=== PATIENT | male | born 1990 | race Caucasian/White ===

== ENCOUNTER 2021-01-18 01:42 | Inpatient (IN) | payer MEDICAID ==
[~2021-01-18] VITALS: Ht 182.9 cm; Wt 77.9 kg
[~2021-01-18 01:42] MED LIST: NO HOME MEDICATIONS
[2021-01-18 02:40] LABS: BASO % 0.4 % (0.0-2.0); EOS % 0.2 % (0-4.0); GRAN # 4.4 (1.4-6.5); GRAN % 80.5 % (42.2-75.2); HEMATOCRIT 39.7 % (42.0-52.0); HEMOGLOBIN 14.4 g/dl (13.5-18.0); LYMPH # 0.5 (1.2-3.4); LYMPH % 8.8 % (20.0-51.0); MEAN CELL VOLUME 91 fl (80.0-100.0); MEAN CORPUSCULAR HEMOGLOBIN 33 pg (27.0-31.0); MEAN CORPUSCULAR HGB CONC 36 g/dl (33.0-37.0); MEAN PLATELET VOLUME 9.9 fl (7.4-10.4); MONO # 0.5 (0.1-0.6); MONO % 9.7 % (1.7-9.3); PLATELET COUNT 189 K/mm3 (130-400); RED BLOOD COUNT 4.35 M/mm3 (4.20-5.60); REDCELL DISTRIBUTION WIDTH-CV 12.2 % (11.5-14.5)
[2021-01-18 02:51] LABS: ALANINE AMINOTRANSFERASE 48 U/L (4-49); ALBUMIN 4.6 gm/dL (3.5-5.0); ALKALINE PHOSPHATASE 77 U/L (50-136); ANION GAP 12 mmol/L (7-16); AST,SGOT 65 U/L (15-37); BILIRUBIN,TOTAL 5.1 mg/dL (0.0-1.0); BLOOD UREA NITROGEN 9 mg/dL (9-20); CALCIUM 9.4 mg/dL (8.4-10.2); CARBON DIOXIDE 25 mmol/L (22-30); CHLORIDE 91 mmol/L (98-107); CREATININE, serum 0.67 (0.66-1.25); GLUCOSE 174 mg/dL (74-106); POTASSIUM 3.3 mmol/L (3.4-5.0); SODIUM 127 mmol/L (137-145); TOTAL PROTEIN 7.3 gm/dL (6.4-8.2)
[2021-01-18 02:55] LABS: ALCOHOL(ethanol),MEDICAL < 10 mg/dL
[2021-01-18 03:35] LABS: COLLECTION METHOD CLEAN CATCH
[2021-01-18 03:40] LABS: PH 6 (5-8); SQUAMOUS EPITHELIAL 0-2 /hpf; URINE APPEARANCE Clear; URINE BACTERIA None Seen /hpf; URINE BILIRUBIN Negative (NEGATIVE); URINE BLOOD 1+ (NEGATIVE); URINE COLOR Yellow; URINE GLUCOSE Negative (NEGATIVE); URINE KETONE 1+ (NEGATIVE); URINE LEUKOCYTE ESTERASE Negative (NEGATIVE); URINE NITRATE Negative (NEGATIVE); URINE PROTEIN(semi-quant) 1+ (NEGATIVE); URINE RBC 0-2 /hpf; URINE UROBILINOGEN Negative (NEGATIVE)
[2021-01-18 03:50] LABS: TRICYCLIC ANTIDEPRESS URINE NEGATIVE
[2021-01-18 06:37] LABS: PROTHROMBIN TIME 10.6 SECONDS (9.7-12.8)
[2021-01-18 06:39] LABS: PARTIAL THROMBOPLASTIN TIME 26.3 SECONDS (26.0-37.0)
[2021-01-18 09:26] VITALS: BP 127/62; PULSE 84; TEMP 98.6
[2021-01-18 11:02] LABS: CALCIUM 9.9 mg/dL (8.4-10.2); CREATININE, serum 0.88 (0.66-1.25); POTASSIUM 3.8 mmol/L (3.4-5.0)
[2021-01-18 11:41] VITALS: BP 127/67; PULSE 80; TEMP 98.3
--- NOTE | 2021-01-18 15:40 | NUR ---
MAYANK met with the patient and his mother, Yomi ([id number]#[id number]), to discuss discharge plan. The patient lives in [place], but has been staying with his parents: Jayshree (ph#[phone]) in [place]. He reports independence with ADLs and does not have any DME. The patient's PCP is Dr. Marcellus Peters and he receives his medications from [facility]. He reports no difficulties obtaining his meds. The patient does not have a DPOA-HC, but his mother was interested in obtaining a DPOA-HC form for him. MAYANK provided. The patient states that he is not and does not have any adult children. His parents are his next of kin. The patient gave SW permission to discuss his alcohol use in front of his mother. SW addressed the patient's heavy alcohol use. The patient reports that he has a plan to continue AA meetings upon discharge. He states that they are familiar with [facility] as well, if needed. The patient's mother inquired about treatment options for alcohol that will be recommended for the patient. MAYANK informed her and the patient of the different treatment options of AA meetings, outpatient treatment, and inpatient treatment and how it is the patient's decision on treatment. The patient and her mother verbalized understanding. The patient's mother was interested in talking to someone from [facility] about their program. MAYANK contacted [facility] CSU. The disaster director reports that the patient or his mother can contact them and they would give them more information about their program. MAYANK met with the patient and his mother and updated them on this and provided them with their phone number. MAYANK also provided the patient with a list of additional local alcohol treatment options. The patient plans to return back to his parents house upon discharge. SW to follow as needed. *Discharge plan: home with parents*
[2021-01-18 16:53] VITALS: BP 121/75; PULSE 71; TEMP 99
--- NOTE | 2021-01-18 19:13 | NUR ---
PT ADMITTED TODAY FROM THE ED. NO S/S OF DISTRESS NOTED. V/S MONITORED AND HAS BEEN STABLE TODAY. CIWA SCORE 3 AT 6PM. REPORT GIVEN TO NIGHT RN, PT STATES HE WOULD LIKE SOMETHING TO SLEEP. CALL PLACED TO [facility] AND WILL PLACE ORDER FOR SLEEP AIDE AND ONE TIME DOSE OF TYLENOL.
[2021-01-18 20:08] VITALS: BP 125/68; PULSE 70; TEMP 98.8
[2021-01-18 22:30] VITALS: BP 129/73; PULSE 62; TEMP 99
[2021-01-18 23:48] VITALS: BP 95/65; PULSE 68; TEMP 98.3
[2021-01-19 02:00] VITALS: BP 124/75; PULSE 57; TEMP 98.2
--- NOTE | 2021-01-19 02:25 | NUR ---
Patient states he accidentally pulled his IV. Arabella EDWARDS inserted a new IV on his right forearm G22. Asked patient if he was able to sleep at some point and he said the last time he slept was afternoon and it was 1 hour only and he haven't sleep yet after that.
[2021-01-19 03:57] VITALS: BP 110/67; PULSE 62; TEMP 98
--- NOTE | 2021-01-19 06:05 | NUR ---
Patient states he still wasn't able to sleep even if Melatonin was given last night. His CIWA scores 3. Ativan never given during the whole shift.
[2021-01-19 06:14] VITALS: BP 118/68; PULSE 58; TEMP 97.9
[2021-01-19 06:55] LABS: BASO % 0.7 % (0.0-2.0); EOS # 0.1 (0.0-0.7); EOS % 1.4 % (0-4.0); GRAN # 2.2 (1.4-6.5); GRAN % 52.5 % (42.2-75.2); HEMATOCRIT 40.4 % (42.0-52.0); HEMOGLOBIN 13.8 g/dl (13.5-18.0); LYMPH # 1.4 (1.2-3.4); LYMPH % 33.5 % (20.0-51.0); MEAN CORPUSCULAR HEMOGLOBIN 33 pg (27.0-31.0); MEAN CORPUSCULAR HGB CONC 34 g/dl (33.0-37.0); MEAN PLATELET VOLUME 10.7 fl (7.4-10.4); MONO # 0.5 (0.1-0.6); MONO % 11.7 % (1.7-9.3); PLATELET COUNT 150 K/mm3 (130-400); RED BLOOD COUNT 4.21 M/mm3 (4.20-5.60); REDCELL DISTRIBUTION WIDTH-CV 13.2 % (11.5-14.5)
[2021-01-19 06:56] LABS: MEAN CELL VOLUME 96 fl (80.0-100.0)
--- NOTE | 2021-01-19 07:00 | NUR ---
Report with GRACE Everett. Pt sitting up in bed, awake and alert, denies needs at this time. Call light in reach.
[2021-01-19 07:06] LABS: CALCIUM 9.3 mg/dL (8.4-10.2); CREATININE, serum 0.78 (0.66-1.25); POTASSIUM 3.5 mmol/L (3.4-5.0)
[2021-01-19 07:54] VITALS: BP 120/66; PULSE 61; TEMP 98.2
--- NOTE | 2021-01-19 08:30 | NUR ---
Assessment complete. Pt sitting up by window, A&O x 4, denies pain at this time. Saline lock IV to right inner wrist without s/s of complications. Physical assessment otherwise unremarkable. No further needs reported. Call light in reach.
[2021-01-19] MEDS ORDERED: NATURE'S BLEND100 M2 PO (09:25)
--- NOTE | 2021-01-19 10:21 | NUR ---
Sw met with the pt to go over options that Chava manuel went over with him. The pt chose AA meetings here in [facility] and will transfer back to [place] when he is ready. No other needs stated at this time. Sw to follow up as needed. D/c Home with family.
--- NOTE | 2021-01-19 11:00 | NUR ---
DISCHARGE INSTRUCTIONS REVIEWED WITH PT REGARDING APPOINTMENTS, MEDICATIONS AND ALCOHOL CESSATION. PT VERBALIZES UNDERSTANDING, DISCHARGES HOME, AMBULATES OUT OF FACILITY ACCOMPANIED BY THIS NURSE AND PT'S MOM.
== END 2021-01-19 11:00 | disposition home or self-care (01) | DRG 897 ==
LOC: COL.ER 01:42 → MEDICAL 06:13
PROVIDERS: Emergency Medicine Emergency Medical Services; Nurse Practitioner Family; Student in an Organized Health Care Education/Training Program
DX: F10.239 Alcohol dependence with withdrawal, unspecified (principal); E87.1 Hypo-osmolality and hyponatremia; G40.509 Epileptic seizures related to external causes, not intractable, without status epilepticus; R73.9 Hyperglycemia, unspecified; E87.8 Other disorders of electrolyte and fluid balance, not elsewhere classified; E87.6 Hypokalemia; R23.3 Spontaneous ecchymoses; G40.909 Epilepsy, unspecified, not intractable, without status epilepticus; Y90.0 Blood alcohol level of less than 20 mg/100 ml; F17.200 Nicotine dependence, unspecified, uncomplicated; E80.6 Other disorders of bilirubin metabolism
CPT/HCPCS: 99222-AI; 99239; C9113; J2405; J3411; J7030

== ENCOUNTER 2021-03-29 00:10 | Emergency (ER) | payer MEDICAID ==
[~2021-03-29] VITALS: Ht 182.9 cm; Wt 79.5 kg
[~2021-03-29 00:10] MED LIST changes: +NATURE'S BLEND100 M2 PO
[2021-03-29 00:15] VITALS: TEMP 98.7
[2021-03-29 00:43] LABS: BASO # 0.1 (0.0-0.2); BASO % 1.2 % (0.0-2.0); EOS # 0.3 (0.0-0.7); EOS % 5.6 % (0-4.0); GRAN # 2.8 (1.4-6.5); GRAN % 45.9 % (42.2-75.2); HEMATOCRIT 44.2 % (42.0-52.0); HEMOGLOBIN 15.8 g/dl (13.5-18.0); LYMPH % 33.1 % (20.0-51.0); MEAN CELL VOLUME 93 fl (80.0-100.0); MEAN CORPUSCULAR HEMOGLOBIN 33 pg (27.0-31.0); MEAN CORPUSCULAR HGB CONC 36 g/dl (33.0-37.0); MEAN PLATELET VOLUME 9.3 fl (7.4-10.4); MONO # 0.9 (0.1-0.6); PLATELET COUNT 298 K/mm3 (130-400); RED BLOOD COUNT 4.76 M/mm3 (4.20-5.60); REDCELL DISTRIBUTION WIDTH-CV 11.9 % (11.5-14.5)
[2021-03-29 00:52] LABS: ALBUMIN 3.5 gm/dL (3.5-5.0); BILIRUBIN,TOTAL 0.4 mg/dL (0.2-1.2); CREATININE, serum 0.84 mg/dL (0.72-1.25); POTASSIUM 3.7 mmol/L (3.5-4.5); TOTAL PROTEIN 6.5 gm/dL (6.2-8.1)
[2021-03-29] MEDS ORDERED: FOLIC ACID 11 MG/TA1 PO (00:53)
[2021-03-29] MEDS ORDERED: LIBRIUM 25M25 MG/CAP PO (00:53)
[2021-03-29] MEDS ORDERED: CEPHALEXIN500 M1 PO (00:53)
[2021-03-29] MEDS ORDERED: NATURE'S BLEND100 M2 PO (00:53)
[2021-03-29 01:30] LABS: COLLECTION METHOD CLEAN CATCH
[2021-03-29 01:41] LABS: PH 7 (5-8); SQUAMOUS EPITHELIAL None Seen /hpf; URINE APPEARANCE Clear; URINE BACTERIA None Seen /hpf; URINE BILIRUBIN Negative (NEGATIVE); URINE BLOOD Negative (NEGATIVE); URINE COLOR Straw; URINE GLUCOSE Negative (NEGATIVE); URINE KETONE Negative (NEGATIVE); URINE LEUKOCYTE ESTERASE Negative (NEGATIVE); URINE NITRATE Negative (NEGATIVE); URINE PROTEIN(semi-quant) Negative (NEGATIVE); URINE RBC 0-2 /hpf; URINE UROBILINOGEN Negative (NEGATIVE); URINE WBC 0-2 /hpf
[2021-03-29 01:43] LABS: TRICYCLIC ANTIDEPRESS URINE NEGATIVE
[2021-03-29 02:05] VITALS: BP 122/76; PULSE 68
== END 2021-03-29 02:04 | disposition home or self-care (01) ==
LOC: COL.ER 00:10
PROVIDERS: Emergency Medicine
DX: F10.239 Alcohol dependence with withdrawal, unspecified (principal); L03.114 Cellulitis of left upper limb; Z88.1 Allergy status to other antibiotic agents; Z88.2 Allergy status to sulfonamides
CPT/HCPCS: J2060; J7030

== ENCOUNTER 2021-04-10 13:20 | Emergency (ER) | payer MEDICAID ==
[~2021-04-10] VITALS: Ht 182.9 cm; Wt 79.5 kg
[~2021-04-10 13:20] MED LIST changes: +CEPHALEXIN500 M1 PO; +FOLIC ACID 11 MG/TA1 PO; +LIBRIUM 25M25 MG/CAP PO
[2021-04-10 13:44] VITALS: TEMP 98.6
[2021-04-10 15:33] LABS: BASO # 0.1 K/mm3 (0.0-0.2); BASO % 1.7 % (0.0-2.0); EOS # 0.2 K/mm3 (0.0-0.7); EOS % 2.5 % (0-4.0); GRAN # 5.3 K/mm3 (1.4-6.5); HEMATOCRIT 45.4 % (42.0-52.0); HEMOGLOBIN 16.1 g/dl (13.5-18.0); LYMPH # 1.5 K/mm3 (1.2-3.4); LYMPH % 19.1 % (20.0-51.0); MEAN CELL VOLUME 95 fl (80.0-100.0); MEAN CORPUSCULAR HEMOGLOBIN 34 pg (27.0-31.0); MEAN CORPUSCULAR HGB CONC 36 g/dl (33.0-37.0); MEAN PLATELET VOLUME 9.9 fl (7.4-10.4); MONO # 0.6 K/mm3 (0.1-0.6); MONO % 7.4 % (1.7-9.3); PLATELET COUNT 282 K/mm3 (130-400); RED BLOOD COUNT 4.79 M/mm3 (4.20-5.60); REDCELL DISTRIBUTION WIDTH-CV 12.3 % (11.5-14.5)
[2021-04-10 15:54] LABS: ALBUMIN 4.3 gm/dL (3.5-5.0); BILIRUBIN,TOTAL 1.5 mg/dL (0.2-1.2); CALCIUM 9.4 mg/dL (8.4-10.2); CREATININE, serum 0.74 mg/dL (0.72-1.25); POTASSIUM 3.8 mmol/L (3.5-4.5); TOTAL PROTEIN 7.4 gm/dL (6.2-8.1)
[2021-04-10] MEDS ORDERED: LIBRIUM 25M25 MG/CAP PO (16:57)
[2021-04-10 18:08] VITALS: BP 119/79; PULSE 71
--- NOTE | 2021-04-11 08:15 | NUR ---
Front Man met with this patient and his mom, Yomi ([phone]) at bedside. Patient states he was living in [place] until December or January of 2021, at which time he came to live with his parents in [place]. He has Medicaid of [place] and states he doesn't qualify for Medicaid in [place]. Patient & mom state he came to [place] after experiencing a seizure d/t etoh withdrawl. Mom "brought him" here to help him. This worker provided resources to assist with his alcoholism as patient self admits he's "a mess". SW offered support and encouragement. D/C home with mom
== END 2021-04-10 18:11 | disposition home or self-care (01) ==
LOC: COL.ER 13:20
PROVIDERS: Emergency Medicine
DX: F10.139 Alcohol abuse with withdrawal, unspecified (principal)
CPT/HCPCS: C9113; J2060; J7030

== ENCOUNTER 2021-04-18 16:31 | Emergency (ER) | payer MEDICAID ==
[~2021-04-18] VITALS: Ht 182.9 cm; Wt 79.5 kg
[2021-04-18 18:32] LABS: BASO # 0.1 K/mm3 (0.0-0.2); BASO % 1.3 % (0.0-2.0); EOS # 0.1 K/mm3 (0.0-0.7); EOS % 2.5 % (0-4.0); GRAN # 2.3 K/mm3 (1.4-6.5); GRAN % 57.7 % (42.2-75.2); HEMATOCRIT 47.2 % (42.0-52.0); HEMOGLOBIN 16.3 g/dl (13.5-18.0); LYMPH # 1.1 K/mm3 (1.2-3.4); LYMPH % 26.9 % (20.0-51.0); MEAN CELL VOLUME 96 fl (80.0-100.0); MEAN CORPUSCULAR HEMOGLOBIN 33 pg (27.0-31.0); MEAN CORPUSCULAR HGB CONC 35 g/dl (33.0-37.0); MEAN PLATELET VOLUME 10.4 fl (7.4-10.4); MONO # 0.5 K/mm3 (0.1-0.6); MONO % 11.6 % (1.7-9.3); PLATELET COUNT 255 K/mm3 (130-400); RED BLOOD COUNT 4.93 M/mm3 (4.20-5.60); REDCELL DISTRIBUTION WIDTH-CV 11.7 % (11.5-14.5)
[2021-04-18 18:46] LABS: ALANINE AMINOTRANSFERASE 29 U/L (0-55); ALBUMIN 4.5 gm/dL (3.5-5.0); ALKALINE PHOSPHATASE 79 U/L (0-750); ANION GAP 9 mmol/L (7-16); AST,SGOT 21 U/L (5-34); BILIRUBIN,TOTAL 1.4 mg/dL (0.2-1.2); BLOOD UREA NITROGEN 10 mg/dL (9-21); CALCIUM 9.9 mg/dL (8.4-10.2); CARBON DIOXIDE 28 mmol/L (22-29); CHLORIDE 102 mmol/L (98-107); CREATININE, serum 0.97 mg/dL (0.72-1.25); GLUCOSE 119 mg/dL (70-99); POTASSIUM 4.3 mmol/L (3.5-4.5); SODIUM 139 mmol/L (136-145); TOTAL PROTEIN 7.5 gm/dL (6.2-8.1)
[2021-04-18 18:48] LABS: ACETAMINOPHEN < 1.0 ug/mL (10-30); ALCOHOL(ethanol),MEDICAL < 10 mg/dL (0-10); SALICYLATE < 5.0 mg/dL (15.0-30.0)
[2021-04-18 19:06] LABS: TSH w REFLEX 1.411 uIU/mL (0.350-4.940)
[2021-04-18 20:05] LABS: COLLECTION METHOD CLEAN CATCH
[2021-04-18 20:18] LABS: PH 6 (5-8); SQUAMOUS EPITHELIAL None Seen /hpf; URINE APPEARANCE Clear; URINE BACTERIA None Seen /hpf; URINE BILIRUBIN Negative (NEGATIVE); URINE BLOOD Negative (NEGATIVE); URINE COLOR Straw; URINE GLUCOSE Negative (NEGATIVE); URINE KETONE Negative (NEGATIVE); URINE LEUKOCYTE ESTERASE Negative (NEGATIVE); URINE NITRATE Negative (NEGATIVE); URINE PROTEIN(semi-quant) Negative (NEGATIVE); URINE RBC 0-2 /hpf; URINE UROBILINOGEN Negative (NEGATIVE)
[2021-04-18 20:42] LABS: TRICYCLIC ANTIDEPRESS URINE NEGATIVE
[2021-04-19 04:15] VITALS: BP 119/73; TEMP 98
[2021-04-19 11:15] VITALS: PULSE 68
== END 2021-04-19 11:15 ==
LOC: COL.ER 16:31
PROVIDERS: Nurse Practitioner Primary Care
DX: F32.A Depression, unspecified (principal); Z20.822 Contact with and (suspected) exposure to COVID-19; Z79.899 Other long term (current) drug therapy

== ENCOUNTER 2021-05-23 22:18 | Emergency (ER) | payer MEDICAID ==
[~2021-05-23] VITALS: Ht 182.9 cm; Wt 79.5 kg
[2021-05-23 23:34] LABS: BASO # 0.1 K/mm3 (0.0-0.2); EOS # 0.1 K/mm3 (0.0-0.7); EOS % 1.4 % (0-4.0); GRAN % 52.1 % (42.2-75.2); HEMATOCRIT 43.3 % (42.0-52.0); HEMOGLOBIN 15.8 g/dl (13.5-18.0); LYMPH # 2.1 K/mm3 (1.2-3.4); MEAN CELL VOLUME 89 fl (80.0-100.0); MEAN CORPUSCULAR HEMOGLOBIN 32 pg (27.0-31.0); MEAN CORPUSCULAR HGB CONC 37 g/dl (33.0-37.0); MEAN PLATELET VOLUME 9.7 fl (7.4-10.4); MONO # 0.5 K/mm3 (0.1-0.6); MONO % 9.3 % (1.7-9.3); PLATELET COUNT 210 K/mm3 (130-400); RED BLOOD COUNT 4.88 M/mm3 (4.20-5.60); REDCELL DISTRIBUTION WIDTH-CV 11.7 % (11.5-14.5)
[2021-05-24 00:08] LABS: ALBUMIN 4.5 gm/dL (3.5-5.0); BILIRUBIN,TOTAL 1.2 mg/dL (0.2-1.2); CALCIUM 9.1 mg/dL (8.4-10.2); CREATININE, serum 0.8 mg/dL (0.72-1.25); POTASSIUM 3.6 mmol/L (3.5-4.5); TOTAL PROTEIN 7.2 gm/dL (6.2-8.1)
[2021-05-24] MEDS ORDERED: LIBRIUM 25M25 MG/CAP PO (01:41)
[2021-05-24 03:05] VITALS: BP 137/84; PULSE 84; TEMP 98
== END 2021-05-24 03:05 | disposition home or self-care (01) ==
LOC: COL.ER 22:18
PROVIDERS: Emergency Medicine
DX: F10.239 Alcohol dependence with withdrawal, unspecified (principal); F32.A Depression, unspecified; Y90.7 Blood alcohol level of 200-239 mg/100 ml
CPT/HCPCS: J2060; J2405; J3411; J3475; J7030

== ENCOUNTER 2022-03-19 22:49 | Emergency (ER) | payer MEDICAID ==
[~2022-03-19] VITALS: Ht 182.9 cm; Wt 70.5 kg
[2022-03-19 23:34] LABS: BASO # 0.1 K/mm3 (0.0-0.2); BASO % 1.2 % (0.0-2.0); EOS # 0.4 K/mm3 (0.0-0.7); EOS % 8.5 % (0.0-4.0); GRAN # 2.2 K/mm3 (1.4-6.5); GRAN % 43.5 % (42.2-75.2); HEMATOCRIT 43.7 % (42.0-52.0); HEMOGLOBIN 15.5 g/dl (13.5-18.0); LYMPH # 1.8 K/mm3 (1.2-3.4); LYMPH % 36.3 % (20.0-51.0); MEAN CELL VOLUME 90 fl (80.0-100.0); MEAN CORPUSCULAR HEMOGLOBIN 32 pg (27-31); MEAN CORPUSCULAR HGB CONC 36 g/dl (33.0-37.0); MEAN PLATELET VOLUME 9.7 fl (7.4-10.4); MONO # 0.5 K/mm3 (0.1-0.6); MONO % 10.3 % (1.7-9.3); PLATELET COUNT 216 K/mm3 (130-400); RED BLOOD COUNT 4.84 M/mm3 (4.20-5.60); REDCELL DISTRIBUTION WIDTH-CV 12.8 % (11.5-14.5)
[2022-03-19 23:57] LABS: ALBUMIN 4.2 gm/dL (3.5-5.0); BILIRUBIN,TOTAL 1.6 mg/dL (0.2-1.2); CALCIUM 9.2 mg/dL (8.4-10.2); CREATININE, serum 0.78 mg/dL (0.72-1.25); POTASSIUM 3.7 mmol/L (3.5-4.5); TOTAL PROTEIN 6.6 gm/dL (6.2-8.1)
[2022-03-20 02:42] VITALS: BP 114/72; PULSE 78; TEMP 98.3
== END 2022-03-20 02:42 | disposition home or self-care (01) ==
LOC: COL.ER 22:49
PROVIDERS: Emergency Medicine
DX: F10.10 Alcohol abuse, uncomplicated (principal); Y90.6 Blood alcohol level of 120-199 mg/100 ml; Z28.310 Unvaccinated for COVID-19
CPT/HCPCS: C9113; J3411; J3475; J7030

== ENCOUNTER 2023-11-15 03:35 | Emergency (ER) | payer SELFPAY ==
[~2023-11-15] VITALS: Ht 182.9 cm; Wt 75.0 kg
[~2023-11-15 03:35] MED LIST changes: +ZOFRAN ODT4 MG PO
[2023-11-15 04:11] VITALS: TEMP 98.2
[2023-11-15 04:54] LABS: BASO % 0.9 % (0.0-2.0); EOS % 0.3 % (0.0-4.0); GRAN % 57.7 % (42.2-75.2); HEMATOCRIT 40.8 % (42.0-52.0); HEMOGLOBIN 14.9 g/dl (13.5-18.0); LYMPH # 0.9 K/mm3 (1.2-3.4); LYMPH % 27.1 % (20.0-51.0); MEAN CELL VOLUME 90 fl (80.0-100.0); MEAN CORPUSCULAR HEMOGLOBIN 33 pg (27-31); MEAN CORPUSCULAR HGB CONC 37 g/dl (33.0-37.0); MEAN PLATELET VOLUME 9.7 fl (7.4-10.4); MONO # 0.5 K/mm3 (0.1-0.6); MONO % 13.7 % (1.7-9.3); PLATELET COUNT 191 K/mm3 (130-400); RED BLOOD COUNT 4.55 M/mm3 (4.20-5.60)
[2023-11-15] MEDS ORDERED: NS 1,000 ML IV ONE (05:00)
[2023-11-15 05:11] LABS: ALANINE AMINOTRANSFERASE 82 U/L (0-55); ALBUMIN 4.5 g/dL (3.5-5.0); ALKALINE PHOSPHATASE 81 U/L (40-150); ANION GAP 17 mmol/L (7-16); AST,SGOT 66 U/L (5-34); BILIRUBIN,TOTAL 2.4 mg/dL (0.2-1.2); CALCIUM 8.9 mg/dL (8.4-10.2); CHLORIDE 94 mEq/L (98-107); CREATININE, serum 0.75 mg/dL (0.72-1.25); GLUCOSE 115 mg/dL (70-99); POTASSIUM 3.5 mEq/L (3.5-4.5); SODIUM 133 mEq/L (136-145)
[2023-11-15 05:12] LABS: BLOOD UREA NITROGEN < 5 mg/dL (9-21)
[2023-11-15] MEDS ORDERED: LORazepam 2 MG/ML 1 ML VIAL IV ONE ×2 (06:09→07:00)
[2023-11-15 06:11] LABS: ALCOHOL(ethanol),MEDICAL 36 mg/dL (0-10); LIPASE 11 U/L (8-78)
[2023-11-15 06:28] LABS: TSH w REFLEX 1.428 uIU/mL (0.350-4.940)
[2023-11-15] MEDS ORDERED: LIBRIUM 25M25 MG/CAP PO (07:57)
[2023-11-15 09:15] VITALS: BP 123/80; PULSE 76
== END 2023-11-15 09:15 | disposition home or self-care (01) ==
LOC: COL.ER 03:35
PROVIDERS: Emergency Medicine
DX: F10.239 Alcohol dependence with withdrawal, unspecified (principal); E80.7 Disorder of bilirubin metabolism, unspecified; R74.01 Elevation of levels of liver transaminase levels; Y90.1 Blood alcohol level of 20-39 mg/100 ml
CPT/HCPCS: J2060; J3411; J7030

== ENCOUNTER 2024-03-01 19:49 | Emergency (ER) | payer SELFPAY ==
[~2024-03-01] VITALS: Ht 182.9 cm; Wt 75.0 kg
[2024-03-01] MEDS ORDERED: Ondansetron 4 MG/2 ML VIAL IV ONE (21:00)
[2024-03-01] MEDS ORDERED: NS 1,000 ML IV ONE (21:00)
[2024-03-01] MEDS ORDERED: Folic Acid 1 MG,Thiamine 200 MG in NS 1,000 ML IV ONE (21:00)
[2024-03-01] MEDS ORDERED: Pantoprazole 40 MG in NS 10 ML IV ONE (21:00)
[2024-03-01] MEDS ORDERED: LORazepam 2 MG/ML 1 ML VIAL IV ONE (21:00)
[2024-03-01 21:06] LABS: COLLECTION METHOD CLEAN CATCH
[2024-03-01 21:11] LABS: PH 6.5 (5.0-8.5); URINE APPEARANCE CLEAR (CLEAR/HAZY); URINE BLOOD NEGATIVE (NEGATIVE); URINE COLOR YELLOW (YELLOW); URINE GLUCOSE NEGATIVE (NEGATIVE); URINE KETONE 1+ (NEGATIVE); URINE NITRATE NEGATIVE (NEGATIVE); URINE PROTEIN(semi-quant) NEGATIVE (NEGATIVE); URINE UROBILINOGEN 0.2 E.U/dL (0.2-1.0)
[2024-03-01 21:21] LABS: TRICYCLIC ANTIDEPRESS URINE NEGATIVE (NEGATIVE)
[2024-03-01 21:22] LABS: BASO % 0.5 % (0.0-2.0); EOS % 0.1 % (0.0-4.0); GRAN # 5.2 K/mm3 (1.4-6.5); GRAN % 69.6 % (42.2-75.2); HEMATOCRIT 39.6 % (42.0-52.0); HEMOGLOBIN 14.3 g/dl (13.5-18.0); LYMPH # 1.6 K/mm3 (1.2-3.4); LYMPH % 21.2 % (20.0-51.0); MEAN CELL VOLUME 90 fl (80.0-100.0); MEAN CORPUSCULAR HEMOGLOBIN 32 pg (27-31); MEAN CORPUSCULAR HGB CONC 36 g/dl (33.0-37.0); MONO # 0.6 K/mm3 (0.1-0.6); MONO % 8.5 % (1.7-9.3); PLATELET COUNT 218 K/mm3 (130-400); RED BLOOD COUNT 4.41 M/mm3 (4.20-5.60); REDCELL DISTRIBUTION WIDTH-CV 11.3 % (11.5-14.5)
[2024-03-01 21:36] LABS: ALANINE AMINOTRANSFERASE 31 U/L (0-55); ALBUMIN 4.6 g/dL (3.5-5.0); ALKALINE PHOSPHATASE 65 U/L (40-150); ANION GAP 18 mmol/L (7-16); AST,SGOT 38 U/L (5-34); BILIRUBIN,TOTAL 3.7 mg/dL (0.2-1.2); BLOOD UREA NITROGEN 9 mg/dL (9-21); CHLORIDE 91 mEq/L (98-107); CREATININE, serum 0.78 mg/dL (0.72-1.25); GLUCOSE 103 mg/dL (70-99); MAGNESIUM 1.6 mg/dL (1.6-2.6); POTASSIUM 4.4 mEq/L (3.5-4.5); SODIUM 126 mEq/L (136-145); TOTAL PROTEIN 7.7 g/dl (6.2-8.1)
[2024-03-01 21:38] LABS: ALCOHOL(ethanol),MEDICAL < 10 mg/dL (0-10); LIPASE < 7 U/L (8-78)
[2024-03-01 21:44] LABS: TROPONIN-I < 0.010 ng/mL (0.00-0.033)
[2024-03-01] MEDS ORDERED: LIBRIUM 25M25 MG/CAP PO (22:44)
[2024-03-01] MEDS ORDERED: Home LORazepam 0.5 MG #3 TAB/PACK PO ONE (22:45)
[2024-03-01] MEDS ORDERED: NATURE'S BLEND100 M2 PO (22:47)
[2024-03-01 23:19] VITALS: BP 111/64; PULSE 66; TEMP 98.7
== END 2024-03-01 23:19 | disposition home or self-care (01) ==
LOC: COL.ER 19:49
PROVIDERS: Emergency Medicine
DX: F10.239 Alcohol dependence with withdrawal, unspecified (principal)
CPT/HCPCS: J2060; J2405; J2470; J3411; J7030

== ENCOUNTER 2024-04-11 20:18 | Emergency (ER) | payer SELFPAY ==
[~2024-04-11] VITALS: Ht 182.9 cm; Wt 75.0 kg
[2024-04-11] MEDS ORDERED: Folic Acid 1 MG,Thiamine 200 MG in NS 1,000 ML IV ONE (21:30)
[2024-04-11 21:39] LABS: BASO # 0.1 K/mm3 (0.0-0.2); BASO % 1.1 % (0.0-2.0); EOS % 0.5 % (0.0-4.0); GRAN # 2.5 K/mm3 (1.4-6.5); GRAN % 56.8 % (42.2-75.2); HEMATOCRIT 43.5 % (42.0-52.0); HEMOGLOBIN 15.5 g/dl (13.5-18.0); LYMPH # 1.3 K/mm3 (1.2-3.4); LYMPH % 29.5 % (20.0-51.0); MEAN CELL VOLUME 96 fl (80.0-100.0); MEAN CORPUSCULAR HEMOGLOBIN 34 pg (27-31); MEAN CORPUSCULAR HGB CONC 36 g/dl (33.0-37.0); MEAN PLATELET VOLUME 10.1 fl (7.4-10.4); MONO # 0.5 K/mm3 (0.1-0.6); MONO % 11.9 % (1.7-9.3); PLATELET COUNT 222 K/mm3 (130-400); RED BLOOD COUNT 4.55 M/mm3 (4.20-5.60); REDCELL DISTRIBUTION WIDTH-CV 12.6 % (11.5-14.5)
[2024-04-11] MEDS ORDERED: LORazepam 2 MG/ML 1 ML VIAL IV ONE (21:45)
[2024-04-11 22:04] LABS: ALBUMIN 4.2 g/dL (3.5-5.0); BILIRUBIN,TOTAL 1.4 mg/dL (0.2-1.2); CREATININE, serum 0.99 mg/dL (0.72-1.25); MAGNESIUM 2.1 mg/dL (1.6-2.6); POTASSIUM 3.8 mEq/L (3.5-4.5); TOTAL PROTEIN 6.9 g/dl (6.2-8.1)
[2024-04-11 22:24] LABS: TROPONIN-I 0.045 ng/mL (0.00-0.033)
[2024-04-12] MEDS ORDERED: LORazepam 2 MG/ML 1 ML VIAL IV ONE (00:30)
[2024-04-12] MEDS ORDERED: LIBRIUM 25M25 MG/CAP PO (00:48)
[2024-04-12 00:53] VITALS: BP 116/73; PULSE 62
[2024-04-12] MEDS ORDERED: chlordiazePOXIDE 25 MG CAP PO ONE (01:00)
== END 2024-04-12 01:00 | disposition home or self-care (01) ==
LOC: COL.ER 20:18
PROVIDERS: Emergency Medicine
DX: F10.239 Alcohol dependence with withdrawal, unspecified (principal); Y90.6 Blood alcohol level of 120-199 mg/100 ml
CPT/HCPCS: J2060; J3411; J7030

== ENCOUNTER 2024-05-05 21:19 | Emergency (ER) | payer SELFPAY ==
[~2024-05-05] VITALS: Ht 182.9 cm; Wt 75.0 kg
[2024-05-05 21:24] VITALS: TEMP 98.7
[2024-05-05] MEDS ORDERED: LORazepam 2 MG/ML 1 ML VIAL IV ONE (21:45)
[2024-05-05] MEDS ORDERED: diazePAM 5 MG TAB PO ONE (21:45)
[2024-05-05] MEDS ORDERED: Pantoprazole 40 MG in NS 10 ML IV ONE (21:45)
[2024-05-05] MEDS ORDERED: NS 1,000 ML IV ONE (21:45)
[2024-05-05 22:06] LABS: BASO # 0.1 K/mm3 (0.0-0.2); BASO % 0.6 % (0.0-2.0); EOS % 0.2 % (0.0-4.0); GRAN # 6.3 K/mm3 (1.4-6.5); HEMATOCRIT 49.7 % (42.0-52.0); HEMOGLOBIN 17.9 g/dl (13.5-18.0); LYMPH # 1.3 K/mm3 (1.2-3.4); LYMPH % 15.5 % (20.0-51.0); MEAN CELL VOLUME 95 fl (80.0-100.0); MEAN CORPUSCULAR HEMOGLOBIN 34 pg (27-31); MEAN CORPUSCULAR HGB CONC 36 g/dl (33.0-37.0); MONO # 0.6 K/mm3 (0.1-0.6); MONO % 7.3 % (1.7-9.3); PLATELET COUNT 215 K/mm3 (130-400); RED BLOOD COUNT 5.23 M/mm3 (4.20-5.60); REDCELL DISTRIBUTION WIDTH-CV 12.5 % (11.5-14.5)
[2024-05-05 22:24] LABS: ALBUMIN 4.9 g/dL (3.5-5.0); BILIRUBIN,TOTAL 2.3 mg/dL (0.2-1.2); CALCIUM 8.9 mg/dL (8.4-10.2); CREATININE, serum 0.91 mg/dL (0.72-1.25); POTASSIUM 3.5 mEq/L (3.5-4.5); TOTAL PROTEIN 8.2 g/dl (6.2-8.1)
[2024-05-05] MEDS ORDERED: LIBRIUM 25M25 MG/CAP PO (23:03)
[2024-05-05 23:31] VITALS: BP 128/77; PULSE 68
[2024-05-05] MEDS ORDERED: Home Diazepam 5 MG #2 TAB/PACK PO ONE (23:45)
== END 2024-05-06 00:02 | disposition home or self-care (01) ==
LOC: COL.ER 21:19
PROVIDERS: Emergency Medicine
DX: F10.239 Alcohol dependence with withdrawal, unspecified (principal); Y90.6 Blood alcohol level of 120-199 mg/100 ml
CPT/HCPCS: J2060; J2470; J7030